=== PATIENT | female | born 1995 | race Caucasian/White ===

== ENCOUNTER 2017-01-28 20:06 | Emergency (ER) | payer OTHER ==
[~2017-01-28] VITALS: Ht 165.1 cm; Wt 106.1 kg
[~2017-01-28 20:06] MED LIST: ADDERALL XR20 MG PO; CATAPRES-TTS 20.2 MG PO; ZOLOFT25 MG PO
[2017-01-28 21:01] LABS: HEMATOCRIT 38.1 % (36.0-46.0); MCH 25.2 PG (29.0-34.0); MCHC 33.3 G/DL (30.0-36.0); MCV 75.6 FL (83-99); MEAN PLAT.VOLUME 9.6 uM^3 (9.5-12.4); PLATELET COUNT 285 K/uL (156-360); RBC DIS.WIDTH-CV 15.2 % (11.8-14.6); RED BLOOD COUNT 5.04 M/uL (3.80-5.20); WHITE BLOOD COUNT 10.4 K/uL (4.1-10.2)
[2017-01-28 21:05] LABS: ADD MIUA? NO; BILIRUBIN NEGATIVE; BLOOD NEGATIVE; COLOR YELLOW ((YELLOW)); GLUCOSE (STRIP) NEGATIVE; KETONES NEGATIVE; LEUKOCYTES NEGATIVE; NITRITE NEGATIVE; PROTEIN (STRIP) NEGATIVE; SPECIFIC GRAVITY 1.016 (1.000-1.030); UCUL ADDED? NO; UROBILINOGEN 0.2 MG/DL (0.2-1.0)
[2017-01-28 21:09] LABS: CHLORIDE 107 mEq/L (99-109); POTASSIUM 3.8 mEq/L (3.7-5.4); SODIUM 141 mEq/L (136-147)
[2017-01-28 21:11] LABS: GLUCOSE 102 mg/dL (70-99)
[2017-01-28 21:12] LABS: ANION GAP 8 MEQ/L (2-14)
[2017-01-28 21:13] LABS: TOTAL BILIRUBIN 1.1 mg/dL (0.0-1.0)
[2017-01-28 21:15] LABS: ALKALINE PHOSPHATASE 51 IU/L (3-129); GFR ESTIMATE (CALCULATED) > 59 mL/min/
[2017-01-28 21:16] LABS: UREA NITROGEN (BUN) 10 mg/dL (9-23)
[2017-01-28 21:18] LABS: LIPASE 25 U/L (1.0-51.0)
[2017-01-28 21:24] LABS: QUANTITATIVE HCG < 4.0 MIU/ML
[2017-01-28] MEDS ORDERED: NAPROXEN500 MG PO (22:11)
[2017-01-28 22:31] VITALS: BP 152/86
== END 2017-01-28 22:31 | disposition home or self-care (01) ==
LOC: EME 20:06
PROVIDERS: Physician Assistant
DX: G89.29 Other chronic pain (principal); R10.12 Left upper quadrant pain; M54.5 Low back pain; F17.200 Nicotine dependence, unspecified, uncomplicated
CPT/HCPCS: 74176; 80053; 81003; 83690; 84702; 85027; 99281; 99283

== ENCOUNTER 2017-11-11 22:22 | Emergency (ER) | payer OTHER ==
[~2017-11-11] VITALS: Ht 165.1 cm; Wt 120.9 kg
[~2017-11-11 22:22] MED LIST changes: +NAPROXEN500 MG PO
[2017-11-11 22:40] LABS: ADD MIUA? NO; BILIRUBIN NEGATIVE; BLOOD NEGATIVE; COLOR STRAW ((YELLOW)); GLUCOSE (STRIP) NEGATIVE; KETONES NEGATIVE; LEUKOCYTES NEGATIVE; NITRITE NEGATIVE; PROTEIN (STRIP) NEGATIVE; SPECIFIC GRAVITY 1.004 (1.000-1.030); UCUL ADDED? NO; UROBILINOGEN 0.2 MG/DL (0.2-1.0)
[2017-11-11 23:04] LABS: HEMATOCRIT 35.9 % (36.0-46.0); MCH 25.8 PG (29.0-34.0); MCHC 32.9 G/DL (30.0-36.0); MCV 78.6 FL (83-99); MEAN PLAT.VOLUME 10.1 uM^3 (9.5-12.4); PLATELET COUNT 263 K/uL (156-360); RBC DIS.WIDTH-CV 13.5 % (11.8-14.6); RBC DIS.WIDTH-SD 38.5 % (39-53); RED BLOOD COUNT 4.57 M/uL (3.80-5.20); WHITE BLOOD COUNT 10.5 K/uL (4.1-10.2)
[2017-11-11 23:17] LABS: CHLORIDE 107 mEq/L (99-109); POTASSIUM 3.4 mEq/L (3.7-5.4); SODIUM 141 mEq/L (136-147)
[2017-11-11 23:19] LABS: GLUCOSE 95 mg/dL (70-99)
[2017-11-11 23:20] LABS: ANION GAP 8 MEQ/L (2-14)
[2017-11-11 23:22] LABS: ALKALINE PHOSPHATASE 48 IU/L (3-129)
[2017-11-11 23:23] LABS: GFR ESTIMATE (CALCULATED) > 59 mL/min/
[2017-11-11 23:24] LABS: UREA NITROGEN (BUN) 8 mg/dL (9-23)
[2017-11-11 23:39] LABS: QUANTITATIVE HCG < 4.0 MIU/ML
[2017-11-11 23:50] LABS: INTERNAL CONTROL VALID? YES; MONOSPOT (MONONUCLEOSIS SEROL) NEGATIVE
[2017-11-12] MEDS ORDERED: CEFTIN250 MG PO (00:57)
[2017-11-12] MEDS ORDERED: NAPROSYN500 MG PO (00:57)
[2017-11-12] MEDS ORDERED: ZOFRAN4 MG PO (00:57)
[2017-11-12 01:08] VITALS: BP 113/70
== END 2017-11-12 01:10 | disposition home or self-care (01) ==
LOC: EME 22:22
PROVIDERS: Emergency Medicine
DX: N12 Tubulo-interstitial nephritis, not specified as acute or chronic (principal); R10.12 Left upper quadrant pain; R11.2 Nausea with vomiting, unspecified; R19.7 Diarrhea, unspecified; Z90.49 Acquired absence of other specified parts of digestive tract; Z72.0 Tobacco use
CPT/HCPCS: 74177; 80053; 81003; 84702; 85027; 86308; 87086; 87493; 87502; 87506; 99281; 99285; J0696; J1885; J2405; J7030